=== PATIENT | female | born 1930 | race Caucasian/White ===

== ENCOUNTER 2017-06-08 12:24 | Inpatient (IN) | payer MEDICARE ==
[~2017-06-08] VITALS: Ht 160 cm; Wt 63.9 kg
[~2017-06-08 12:24] MED LIST: ACET-2521 PO; ASPE90C TP; ASPI-1181 PO; CALTRATE CHEW; CETI10CA5 PO; CYAN50008 PO; GABA-529 PO; LEVO75TA4 PO; METO-408 PO; MVI CHEW; OLME20TA22 PO; OMEP20CA4 PO; PREM625 PO; SIMV20TA6 PO
[2017-06-08 13:39] LABS: BASOPHILS % (AUTO) 0.5 % (0.0-5.0); EOSINOPHILS % (AUTO) 1.6 % (0.0-8.0); HEMATOCRIT 39.7 % (36-48); LYMPHOCYTES % (AUTO) 24.8 % (21.0-51.0); MEAN CORPUSCULAR HEMOGLOBIN 31.9 pg (27.0-33.0); MEAN CORPUSCULAR HGB CONC 34.7 g/dL (32.0-36.0); MONOCYTES % (AUTO) 8.9 % (3.0-13.0); NEUTROPHILS % (AUTO) 64.2 % (40.0-77.0); PLATELET COUNT (AUTO) 221 K/uL (130-400); RED BLOOD CELL COUNT(AUTO) 4.32 MIL/uL (4.00-5.50); RED CELL DISTRIBUTION WIDTH 12.5 % (11.0-15.5); WHITE BLOOD COUNT (AUTO) 5.9 K/uL (4.8-10.8)
[2017-06-08] MEDS ORDERED: CLINDAMYCIN 600 MG/D5% WATER 50 ML IV ONE (13:48)
[2017-06-08 14:18] LABS: POTASSIUM 4.3 mmol/L (3.5-5.1)
[2017-06-08] MEDS ORDERED: CEFTRIAXONE SODIUM 1 GM IVP SCH (19:00)
[2017-06-08] MEDS ORDERED: MORPHINE SULFATE 4 MG/1ML SYG IVP PRN (19:15)
[2017-06-08] MEDS ORDERED: VANCOMYCIN PROTOCOL PER PHARMACY IV SCH (19:15)
[2017-06-08] MEDS ORDERED: VANCOMYCIN 1GM+NS 250ML 250 ML IV SCH (20:00)
[2017-06-08] MEDS ORDERED: VANCOMYCIN 1GM+NS 250ML 250 ML IV ONE (21:56)
[2017-06-08] MEDS ORDERED: POTASSIUM CHLORIDE 20 MEQ ERTAB PO PRN (23:30)
[2017-06-08] MEDS ORDERED: LIDOCAINE HCL-MPF 1% 2ML VIAL IVP PRN (23:30)
[2017-06-08] MEDS ORDERED: POTASSIUM CHLORIDE 20MEQ/100ML 100 ML IV PRN (23:30)
[2017-06-08] MEDS ORDERED: POTASSIUM CHLORIDE 10% ELIXIR 20 MEQ/15 ML UDCUP PO PRN (23:30)
[2017-06-08] MEDS ORDERED: LACTULOSE 20 GM/30 ML UDCUP PO PRN (23:30)
[2017-06-08 23:50] VITALS: BP 183/84
[2017-06-09] VITALS (7 sets, daily range): BP systolic 136–192; BP diastolic 59–104
[2017-06-09] MEDS: HYDRALAZINE HCL 20 MG/ML VIAL IV PRN ×2 (00:11→23:57)
[2017-06-09] MEDS: ACETAMINOPHEN 325 MG TAB PO PRN ×2 (00:20→08:12)
[2017-06-09] MEDS ORDERED: POTA10CA44 PO (00:31)
[2017-06-09] MEDS ORDERED: LEVO75TA4 PO (00:32)
[2017-06-09] MEDS ORDERED: LEVO50TA4 PO (00:34)
[2017-06-09 03:51] LABS: HEMATOCRIT 39.2 % (36-48); MEAN CORPUSCULAR HEMOGLOBIN 31.8 pg (27.0-33.0); MEAN CORPUSCULAR HGB CONC 34.4 g/dL (32.0-36.0); MEAN CORPUSCULAR VOLUME 92.3 fL (79-99); PLATELET COUNT (AUTO) 215 K/uL (130-400); RED BLOOD CELL COUNT(AUTO) 4.24 MIL/uL (4.00-5.50); RED CELL DISTRIBUTION WIDTH 12.7 % (11.0-15.5)
[2017-06-09 04:06] LABS: INR 0.94 (0.85-1.15); PARTIAL THROMBOPLASTIN TIME 25.3 SEC (26.3-35.5); PROTHROMBIN TIME 9.9 SEC (9.6-11.6)
[2017-06-09 04:10] LABS: CREATININE 0.9 mg/dL (0.5-1.5); POTASSIUM 4.3 mmol/L (3.5-5.1)
[2017-06-09] MEDS: FAMOTIDINE 20MG TAB 20 MG TAB PO SCH ×2 (08:12→21:01)
[2017-06-09] MEDS ORDERED: TROLAMINE SALICYLATE CREAM 85 GM TUBE TP PRN (10:00)
[2017-06-09] MEDS: **HM** TOPROL XL 25MG PO SCH (21:00)
[2017-06-09] MEDS: VANCOMYCIN 1GM+NS 250ML 250 ML IV SCH (21:01)
[2017-06-09] MEDS: ASPIRIN 81 MG EC TAB PO SCH (21:01)
[2017-06-09] MEDS: LOSARTAN 100 MG TABLET PO SCH (21:01)
[2017-06-09] MEDS: ATORVASTATIN CALCIUM 10 MG TABLET PO SCH (21:01)
[2017-06-09] MEDS: GABAPENTIN 100 MG CAPSULE PO SCH (21:01)
[2017-06-09] MEDS ORDERED: PHARMACY COMMUNICATION MISC SCH (21:15)
[2017-06-10] VITALS (20 sets, daily range): BP systolic 133–190; BP diastolic 60–98
[2017-06-10] MEDS: ACETAMINOPHEN 325 MG TAB PO PRN ×2 (00:28→06:08)
[2017-06-10] MEDS: LEVOTHYROXINE 75 MCG TABLET PO SCH (05:41)
[2017-06-10 06:00] LABS: HEMATOCRIT 37.6 % (36-48); MEAN CORPUSCULAR HEMOGLOBIN 32.7 pg (27.0-33.0); MEAN CORPUSCULAR HGB CONC 35.5 g/dL (32.0-36.0); MEAN CORPUSCULAR VOLUME 92.2 fL (79-99); PLATELET COUNT (AUTO) 213 K/uL (130-400); RED BLOOD CELL COUNT(AUTO) 4.07 MIL/uL (4.00-5.50); RED CELL DISTRIBUTION WIDTH 12.6 % (11.0-15.5)
[2017-06-10 06:21] LABS: CREATININE 0.8 mg/dL (0.5-1.5); POTASSIUM 3.8 mmol/L (3.5-5.1)
[2017-06-10] MEDS: **HM** TOPROL XL 25MG PO SCH ×2 (08:22→20:09)
[2017-06-10] MEDS: POTASSIUM CHLORIDE 10 MEQ/TAB.SA PO SCH (08:23)
[2017-06-10] MEDS: FAMOTIDINE 20MG TAB 20 MG TAB PO SCH ×2 (08:24→19:57)
[2017-06-10] MEDS ORDERED: CETIRIZINE HCL 5 MG TABLET PO PRN (09:00)
[2017-06-10] MEDS ORDERED: LACTATED RINGERS 1000ML 1,000 ML IV ONE (12:15)
[2017-06-10] MEDS ORDERED: PROPOFOL 10 MG/ML 20ML VIAL IV ONE (14:38)
[2017-06-10] MEDS ORDERED: FENTANYL CITRATE PF 50 MCG/1 ML 2ML VIAL ONE (14:38)
[2017-06-10] MEDS ORDERED: DEXAMETHASONE SOD PHOSPHATE 10MG/ML 1ML VIAL ONE (14:38)
[2017-06-10] MEDS ORDERED: MIDAZOLAM HCL 1 MG/ML 2ML VIAL ONE (14:38)
[2017-06-10] MEDS ORDERED: GLYCOPYRROLATE 0.2 MG/ML 5 ML VIAL ONE (14:38)
[2017-06-10] MEDS ORDERED: LIDOCAINE PF 2% 5ML ABBOJECT ONE (14:38)
[2017-06-10] MEDS ORDERED: ONDANSETRON HCL 4 MG/2 ML VIAL ONE (14:38)
[2017-06-10] MEDS ORDERED: EPHEDRINE SULFATE 50 MG/ML AMPULE ONE (15:05)
[2017-06-10] MEDS ORDERED: MEPERIDINE-PF 25 MG/ML SYG ONE (16:02)
[2017-06-10] MEDS ORDERED: METOCLOPRAMIDE 10 MG/2 ML VIAL ONE (16:08)
[2017-06-10] MEDS: ONDANSETRON HCL MDV 20ML 2 MG/ML VIAL IVP PRN (16:12)
[2017-06-10] MEDS ORDERED: LABETALOL HCL 5 MG/ML 20ML VIAL IV ONE (16:18)
[2017-06-10] MEDS: VANCOMYCIN 1GM+NS 250ML 250 ML IV SCH (19:56)
[2017-06-10] MEDS: LOSARTAN 100 MG TABLET PO SCH (19:57)
[2017-06-10] MEDS: ATORVASTATIN CALCIUM 10 MG TABLET PO SCH (19:57)
[2017-06-10] MEDS: GABAPENTIN 100 MG CAPSULE PO SCH (19:57)
[2017-06-10] MEDS: ASPIRIN 81 MG EC TAB PO SCH (19:59)
[2017-06-11 03:19] VITALS: BP 145/73
[2017-06-11] MEDS: ACETAMINOPHEN 325 MG TAB PO PRN (04:30)
[2017-06-11] MEDS: LEVOTHYROXINE 75 MCG TABLET PO SCH (06:16)
[2017-06-11 07:44] VITALS: BP 150/69
[2017-06-11] MEDS: **HM** TOPROL XL 25MG PO SCH ×2 (09:00→21:00)
[2017-06-11] MEDS: FAMOTIDINE 20MG TAB 20 MG TAB PO SCH ×2 (09:22→19:57)
[2017-06-11] MEDS: POTASSIUM CHLORIDE 10 MEQ/TAB.SA PO SCH (09:22)
[2017-06-11] MEDS: MORPHINE SULFATE 4 MG/1ML SYG IVP PRN ×2 (09:57→20:04)
[2017-06-11] MEDS: ONDANSETRON HCL MDV 20ML 2 MG/ML VIAL IVP PRN (10:05)
[2017-06-11 11:50] VITALS: BP 158/78
[2017-06-11 16:00] VITALS: BP 140/72
[2017-06-11 19:16] VITALS: BP 141/76
[2017-06-11] MEDS: LOSARTAN 100 MG TABLET PO SCH (19:56)
[2017-06-11] MEDS: ATORVASTATIN CALCIUM 10 MG TABLET PO SCH (19:56)
[2017-06-11] MEDS: ASPIRIN 81 MG EC TAB PO SCH (19:56)
[2017-06-11] MEDS: GABAPENTIN 100 MG CAPSULE PO SCH (19:57)
[2017-06-11] MEDS ORDERED: VANCOMYCIN 1.25 GM in SODIUM CHLORIDE 0.9% 250 ML IV ONE (21:15)
[2017-06-11 23:19] VITALS: BP 163/88
[2017-06-12 03:12] VITALS: BP 158/89
[2017-06-12 03:40] LABS: HEMATOCRIT 36.3 % (36-48); MEAN CORPUSCULAR HEMOGLOBIN 32.4 pg (27.0-33.0); MEAN CORPUSCULAR HGB CONC 35.3 g/dL (32.0-36.0); MEAN CORPUSCULAR VOLUME 91.7 fL (79-99); PLATELET COUNT (AUTO) 195 K/uL (130-400); RED BLOOD CELL COUNT(AUTO) 3.95 MIL/uL (4.00-5.50); RED CELL DISTRIBUTION WIDTH 12.4 % (11.0-15.5); WHITE BLOOD COUNT (AUTO) 7.1 K/uL (4.8-10.8)
[2017-06-12] MEDS: LEVOTHYROXINE 75 MCG TABLET PO SCH (06:46)
[2017-06-12] MEDS: VANCOMYCIN 500MG+NS 100ML 100 ML IV SCH ×2 (06:47→18:13)
[2017-06-12 08:00] VITALS: BP 163/74
[2017-06-12] MEDS: **HM** TOPROL XL 25MG PO SCH ×2 (09:00→21:00)
[2017-06-12] MEDS: FAMOTIDINE 20MG TAB 20 MG TAB PO SCH ×2 (09:05→21:04)
[2017-06-12] MEDS: POTASSIUM CHLORIDE 10 MEQ/TAB.SA PO SCH (09:06)
[2017-06-12 11:45] VITALS: BP 161/76
[2017-06-12] MEDS: MORPHINE SULFATE 4 MG/1ML SYG IVP PRN ×2 (12:15→16:44)
[2017-06-12 15:45] VITALS: BP 172/81
[2017-06-12] MEDS ORDERED: ACETAMINOPHEN-CODEINE 300/30MG TAB PO PRN (16:30)
[2017-06-12] MEDS: HYDRALAZINE HCL 20 MG/ML VIAL IV PRN (18:33)
[2017-06-12 20:00] VITALS: BP 145/71
[2017-06-12] MEDS: ATORVASTATIN CALCIUM 10 MG TABLET PO SCH (21:04)
[2017-06-12] MEDS: ASPIRIN 81 MG EC TAB PO SCH (21:04)
[2017-06-12] MEDS: GABAPENTIN 100 MG CAPSULE PO SCH (21:05)
[2017-06-12] MEDS: LOSARTAN 100 MG TABLET PO SCH (21:05)
[2017-06-12 23:54] VITALS: BP 146/73
[2017-06-13 03:55] VITALS: BP 152/80
[2017-06-13] MEDS: VANCOMYCIN 500MG+NS 100ML 100 ML IV SCH (06:14)
[2017-06-13] MEDS ORDERED: LEVOTHYROXINE 50 MCG TABLET PO SCH (06:30)
[2017-06-13 08:00] VITALS: BP 166/81
[2017-06-13] MEDS: **HM** TOPROL XL 25MG PO SCH (10:52)
[2017-06-13] MEDS: FAMOTIDINE 20MG TAB 20 MG TAB PO SCH (10:53)
[2017-06-13] MEDS: POTASSIUM CHLORIDE 10 MEQ/TAB.SA PO SCH (10:54)
[2017-06-13] MEDS ORDERED: TYL3 PO (11:05)
[2017-06-13] MEDS ORDERED: DOXY100C2 PO (11:06)
[2017-06-13] MEDS ORDERED: TRAM50TA4 PO (11:07)
[2017-06-13] MEDS ORDERED: DOCU240C80 PO (11:08)
== END 2017-06-13 13:00 | disposition home health service (06) | DRG 580 ==
LOC: EDH 12:24 → EDHIP 15:50 → 3BH 23:30
PROVIDERS: ADMIT Internal Medicine; ATTEND Internal Medicine
PROC: 0J9H0ZZ Drainage of Left Lower Arm Subcutaneous Tissue and Fascia, Open Approach (ICD-10-PCS; principal; 2017-06-10 14:49)
DX: L03.114 Cellulitis of left upper limb (principal); L02.512 Cutaneous abscess of left hand; Z95.1 Presence of aortocoronary bypass graft; E78.5 Hyperlipidemia, unspecified; E03.9 Hypothyroidism, unspecified; I10 Essential (primary) hypertension; M19.90 Unspecified osteoarthritis, unspecified site; I25.10 Atherosclerotic heart disease of native coronary artery without angina pectoris; W01.0XXA Fall on same level from slipping, tripping and stumbling without subsequent striking against object, initial encounter; Y93.89 Activity, other specified; Y92.89 Other specified places as the place of occurrence of the external cause; Y99.8 Other external cause status; Z87.891 Personal history of nicotine dependence; Z90.710 Acquired absence of both cervix and uterus
CPT/HCPCS: 36415; 73110; 73130; 80048; 80202; 85025; 85027; 85610; 85730; 87070; 87076; 87205; A4218; A6266; J0360; J0696; J1100; J2001; J2175; J2250; J2270; J2405; J2704; J2765; J3010; J3370; J3490; J7030; J7120

== ENCOUNTER → 2018-09-02 | Outpatient (CLI) | payer MEDICARE ==
[~2018-09-02] MED LIST changes: +DOCU240C80 PO; +DOXY100C2 PO; +LEVO50TA4 PO; +POTA10CA44 PO; +TRAM50TA4 PO; +TYL3 PO
== END | disposition home or self-care (01) ==
LOC: SHCH 13:26
PROVIDERS: ATTEND Internal Medicine Cardiovascular Disease
DX: I08.3 Combined rheumatic disorders of mitral, aortic and tricuspid valves (principal); I25.709 Atherosclerosis of coronary artery bypass graft(s), unspecified, with unspecified angina pectoris; Z95.1 Presence of aortocoronary bypass graft
CPT/HCPCS: 93306

== ENCOUNTER → 2018-09-03 | Outpatient (CLI) | payer MEDICARE ==
[~2018-09-03] VITALS: Ht 162.6 cm; Wt 65.3 kg
[~2018-09-03] MED LIST changes: +REGADENOSON 0.4 MG/5 ML PF SYG IVP SCH
== END | disposition home or self-care (01) ==
LOC: SHCH 07:56
PROVIDERS: ATTEND Internal Medicine Cardiovascular Disease
DX: I25.119 Atherosclerotic heart disease of native coronary artery with unspecified angina pectoris (principal); I25.709 Atherosclerosis of coronary artery bypass graft(s), unspecified, with unspecified angina pectoris; Z95.1 Presence of aortocoronary bypass graft
CPT/HCPCS: 78452; 93017; 96374; A9500 ×2; J2785